=== PATIENT | female | born 1980 | race Caucasian/White ===

== ENCOUNTER 2022-09-06 08:41 | Emergency (ER) | payer OTHER, SELFPAY ==
[2022-09-06 08:45] VITALS: BP 144/79; PULSE 103; RESP 20; TEMP 36.6; O2SAT 100
--- NOTE | 2022-09-06 09:01 | ED.DIZZY ---
HPI - Dizziness General Chief Complaint: Dizziness Stated Complaint: dizzy Time Seen by Provider: 09/06/22 09:02 Source: patient and RN notes reviewed Mode of arrival: ambulatory Limitations: no limitations History of Present Illness HPI Narrative: 42 y/o female presented for c/o intermittent dizziness since yesterday. Dizziness worse today, worse when looking up to ceiling. States it feels like she is drunk. Endorses mild headache rating 1/10. No dizziness with turning head side to side or other moevments. Checked her blood sugar using her husbands equipment and checked bp at home, stating both were normal. Denies tinnitus, history of dizziness, chest pain, heart racing, vision changes, vomiting. Related Data Allergies Allergy/AdvReac Type Severity Reaction Status Date / Time No Known Allergies Allergy Unverified 09/06/22 08:54 Review of Systems Review of Systems: CONSTITUTIONAL: Denies body aches, fever, chills, or sweats. EYES: Denies visual changes, redness, or discharge. ENT: Denies rhinorrhea, congestion, sore throat, or otalgia. CARDIOVASCULAR: Denies chest pain, palpitations, or edema. RESPIRATORY: Denies cough or dyspnea. GASTROINTESTINAL: Denies abdominal pain, nausea, vomiting, or diarrhea. GENITOURINARY: Denies dysuria or hematuria. SKIN: Denies rash, itching, or wounds. MUSCULOSKELETAL: Denies back pain, joint pain, or myalgia. NEUROLOGIC: denies numbness, tingling, or weakness, dizziness All systems reviewed & are unremarkable except as noted in HPI and below PMFSH Comments At time of signature, I have reviewed and agree with nursing past medical, surgical, social and family history unless otherwise noted. Please see nursing chart for further information. There is no relevant family history pertinent to the presenting complaint Exam Narrative: GENERAL: Well-appearing, well-nourished HEAD: Normocephalic, atraumatic. EYES: PERRLA, EOMI. ENT: Mucous membranes pink and moist. No rhinorrhea. TMs normal bilaterally. NECK: Normal AROM. Supple. CHEST: Clear to auscultation. HEART: Regular rate and rhythm. No murmur appreciated. Normal peripheral pulses. ABDOMEN: Soft, nontender, nondistended, normal active bowel sounds. SKIN: Warm, dry, no rash. Capillary refill normal. Normal skin turgor. NEURO:No focal deficits. Alert and oriented x3. Dizziness reported with head tilt back. EOMs intact without nystagmus. No facial droop/asymmetry noted bilaterally. Grimace intact. Intact sensation in face. Hearing intact bilaterally. Shoulder shrug intact. Strength 5/5 bilateral upper extremities. Ambulatory exam with a normal based, steady gait. PSYCH: Normal affect. Course Course Emergency Course: Patient is aware of diagnosis, understands and agrees to treatment plan. Anticipatory guidance given. Patient agrees to follow-up as directed and is aware of reasons to seek care at the emergency department. Portions of this record may have been created with voice recognition software Level of Care: Express Care Visit Vital Signs Vital signs: Vital Signs Temperature 98 F 09/06/22 08:45 Pulse Rate 103 H 09/06/22 08:45 Respiratory Rate 20 09/06/22 08:45 Blood Pressure 144/79 H 09/06/22 08:45 Pulse Oximetry 100 09/06/22 08:45 Oxygen Delivery Room Air 09/06/22 08:45 Temperature 98 F 09/06/22 08:45 Pulse Rate 103 H 09/06/22 08:45 Respiratory Rate 20 09/06/22 08:45 Blood Pressure 144/79 H 09/06/22 08:45 Pulse Oximetry 100 09/06/22 08:45 Oxygen Delivery Room Air 09/06/22 08:45 MDM - Dizziness MDM Narrative Medical decision making narrative: Patients vertigo is felt to be likely peripheral in origin. there is no diplopia, dysarthria, or dysphagia. Patients gait is stable and there are no focal neurological deficits on exam. Risk for central causes has been reviewed. Patient felt likely reasonable for continued outpatient management and risks are felt to outweigh benefits
== END 2022-09-06 09:29 | disposition home or self-care (01) ==
PROVIDERS: Emergency Provider Nurse Practitioner Family; PCP Internal Medicine
DX: H81.10 Benign paroxysmal vertigo, unspecified ear (principal)
CPT/HCPCS: 99213; G0463